=== PATIENT | female | born 1930 | race Caucasian/White ===

== ENCOUNTER 2016-04-16 06:45 | Observation (INO) | payer MEDICARE, OTHER ==
[2016-04-11 10:52] LABS: HEMATOCRIT 39.9 % (36.0-48.0); HEMOGLOBIN 12.9 g/dL (12.0-16.0)
[2016-04-11 11:02] LABS: BUN (BLOOD UREA NITROGEN) 12 MG/DL (6-23); CALCIUM, SERUM 8.9 MG/DL (8.5-10.4); CHLORIDE, SERUM 101 MMOL/L (96-112); CO2 (CARBON DIOXIDE) 30 MMOL/L (24-34); CREATININE 0.72 MG/DL (0.55-1.02); GFR AFRICAN AMERICAN 88 ML/MIN (>=60); GFR NON AFRICAN AMERICAN 76 ML/MIN (>=60); GLUCOSE, SERUM 203 MG/DL (60-99); POTASSIUM, SERUM 3.8 MMOL/L (3.5-5.3); SODIUM, SERUM 140 MMOL/L (135-148)
--- NOTE | ~2016-04-16 | OP ---
Record Of Operation [facility] [address] [place]. [address] NAME: LAWRENCE KELLER : 30 STATUS : ADM Angel PAT#: [id number] AGE: 86 ADM/REG DATE : 04/16/16 MR#: [id number] REPORT SERV DATE: 04/17/16 DICTATED BY: HELLEN KELLEY DATE: 04/17/16 REPORT STATUS : Draft TRANSCRIBED BY: MODL DATE: 04/17/16 DATE OF PROCEDURE: 04/16/2016 PREOPERATIVE DIAGNOSIS: Bilateral lower extremity ischemia, left worse than right. POSTOPERATIVE DIAGNOSIS: Bilateral lower extremity ischemia, left worse than right. PROCEDURE: 1. Ultrasound-guided percutaneous access, right common femoral artery. 2. Abdominal aortogram. 3. Bilateral lower extremity arteriogram. 4. Percutaneous directional atherectomy of the left popliteal artery (TurboHawk SXC). 5. Drug-coated balloon angioplasty of the left popliteal artery (4 mm x 80 mm IN.PACT Admiral balloon). 6. Drug-coated balloon angioplasty left proximal SFA (6 mm x 40 mm IN.PACT Admiral balloon). 7. Percutaneous angioplasty of left anterior tibial artery (3 mm balloon). SURGEON: Hellen Kelley M.D. ANESTHESIA: Local with MAC. ESTIMATED BLOOD LOSS: 10 mL. CONTRAST: 103 mL. IV FLUIDS: 400 mL. SPECIMEN: Plaque. COMPLICATIONS: None. INDICATIONS: Ms. Keller is a pleasant 86-year-old female, with a longstanding peripheral arterial disease, secondary to atherosclerosis. She has developed recurrent ischemic symptoms in both legs, left worse than right. She is brought today for arteriography and percutaneous intervention if needed. DETAILS OF PROCEDURE: After informed consent was obtained, the patient was brought to the endovascular suite, and placed in supine position. After administration of IV sedation, she was prepped and draped in usual sterile fashion. A time-out was performed. I commenced the procedure with ultrasound-guided percutaneous access of the right common femoral artery. This was done after anesthetizing the right groin with local anesthetic. A permanent image of the artery documenting its patency was saved and stored in the patient's chart. I accessed with a micropuncture needle and passed a micropuncture wire and confirmed intra- arterial under fluoroscopy. I then upsized to a 5-Qatari sheath over a Bentson wire. I advanced the Bentson wire and universal flush catheter into the abdominal aorta. The Record Of Operation [facility] [address] [place]. [address] NAME: LAWRENCE KELLER : 30 STATUS : ADM Angel PAT#: [id number] AGE: 86 ADM/REG DATE : 04/16/16 MR#: [id number] REPORT SERV DATE: 04/17/16 DICTATED BY: HELLEN KELLEY DATE: 04/17/16 REPORT STATUS : Draft TRANSCRIBED BY: SRINI DATE: 04/17/16 abdominal aortogram was performed, which showed the infrarenal aorta to be patent with no stenosis or aneurysmal disease. Single renal arteries were patent bilaterally with no stenosis. Common iliacs, internal iliacs, and external iliacs were patent bilaterally with no stenosis. Next, I pulled the flush catheter down to the bifurcation and flexed it over the contralateral iliac with a Glidewire. I advanced the flush catheter over the Glidewire over the bifurcation under fluoro. I then performed left leg arteriogram. This showed the common femoral and deep femoral arteries to be patent with no stenosis. The origin the SFA was patent. Just beyond the origin, there was a focal 80% stenosis. The remainder of the SFA was diffusely diseased, but has no high-grade stenosis. There was a stent in place in the mid SFA which was patent with no stenosis. There was long segment of high-grade stenosis in the above knee popliteal artery. There was short segment occlusion of below- knee popliteal artery extending into the origin of the anterior tibial artery which was also occluded. The distal anterior tibial artery was patent all the way to the foot. It is the only significant runoff vessel. After that, we systemically heparinized. I replaced the Glidewire into the flush catheter. I exchange the 5-Qatari sheath for a 6 x 45 sheath over the bifurcation under fluoro. I used a NaviCross and a Glidewire to navigate through the SFA and popliteal arteries. I then used the V-18 and a NaviCross to engage the anterior tibial artery. I advanced a wire and catheter to the anterior tibial artery stenosis. I then performed balloon angioplasty in the distal popliteal artery and proximal anterior tibial artery with a 3 mm balloon. Repeat contrast injection showed this area to be widely patent now with no residual stenosis and no dissection. There was good flow distally. I then exchanged for 0.014 wire. I then performed percutaneous directional atherectomy in the popliteal artery with the TurboHawk SXC. Multiple passes were made. Significant plaque was extracted. Repeat contrast injection shows substantial improvement in the flow lumen with only mild residual stenosis remaining. Drug coated balloon angioplasty was undertaken with a 4 mm IN.PACT Admiral balloon. Repeat contrast injection showed this area to be widely patent with no stenosis. There was good flow distally with no evidence of distal embolization. We then turned our attention back to the proximal SFA. Pre-dilatation was undertaken in the high-grade SFA stenosis with a 5 mm balloon. We then used IN.PACT Admiral balloon for drug coated balloon angioplasty in the same lesion. Repeat contrast injection shows the area to be widely patent now with no residual stenosis and no dissection. Again runoff to the foot was confirmed with no evidence of distal embolization. There was improved flow to the foot. Wires and catheters were removed. We replaced the Bentson wire and pulled the sheath back over the bifurcation. Right femoral artery arteriogram shows the puncture site in the mid common femoral artery. I also performed right leg arteriogram which showed the common femoral and deep femoral arteries to be patent with no stenosis. There was diffuse irregular disease throughout the SFA and popliteal arteries with no high- grade stenosis. Below the knee, there was stenosis in the tibioperoneal trunk. 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 There was in line flow through the peroneal artery with no evidence of high-grade stenosis. After that, ProGlide closure device was deployed for hemostasis. The patient tolerated the procedure well with no complications. I was present for this entire case as dictated. ALEXIS/SRINI Record Of [address]. [address] NAME: LAWRENCE KELLER : 30 STATUS : ADM Angel PAT#: [id number] AGE: 86 ADM/REG DATE : 04/16/16 MR#: [id number] REPORT SERV DATE: 04/17/16 DICTATED BY: HELLEN KELLEY DATE: 04/17/16 REPORT STATUS : Draft TRANSCRIBED BY: SRINI DATE: 04/17/16 Hellen Kelley M.D. / [id number] CC: Pj Ford M.D.
[~2016-04-16 06:45] MED LIST: AMARYL2 PO; ASAB PO; CENTRUM PO; GLUCOPHXR7 PO; GLUCPH PO; KLOR-CON M2020 MEQ PO; LIPITOR10 PO; MOBIC7.5 PO; NORCO1 TA1 PO; NORV5 PO; PLAVIX PO; SAS500 PO; ZESTORETIC PO; [UNRECOGNIZED DRUG - OTHER] PO
[2016-04-17 05:19] LABS: BUN (BLOOD UREA NITROGEN) 12 MG/DL (6-23); CALCIUM, SERUM 8.8 MG/DL (8.5-10.4); CHLORIDE, SERUM 103 MMOL/L (96-112); CO2 (CARBON DIOXIDE) 29 MMOL/L (24-34); CREATININE 0.69 MG/DL (0.55-1.02); GFR AFRICAN AMERICAN 91 ML/MIN (>=60); GFR NON AFRICAN AMERICAN 79 ML/MIN (>=60); GLUCOSE, SERUM 194 MG/DL (60-99); SODIUM, SERUM 142 MMOL/L (135-148)
[2016-10-15] MEDS ORDERED: ACTOS15 PO (16:04)
[2016-10-15] MEDS ORDERED: NEUR300 PO (16:04)
[2016-10-15] MEDS ORDERED: CYMBALTA30 PO (16:05)
[2016-10-15] MEDS ORDERED: NORCO1 TA2 PO (16:06)
[2016-10-15] MEDS ORDERED: SENTAB PO (16:07)
[2016-10-15] MEDS ORDERED: T PO (16:07)
== END 2016-04-17 15:00 | disposition home or self-care (01) ==
LOC: SDC 06:45 → SSU1 11:34
PROVIDERS: Surgery
PROC: 04CN3ZZ Extirpation of Matter from Left Popliteal Artery, Percutaneous Approach (ICD-10-PCS; principal; 2016-04-16 08:15)
PROC: 047N3Z1 Dilation of Left Popliteal Artery using Drug-Coated Balloon, Percutaneous Approach (ICD-10-PCS; 2016-04-16 08:15)
PROC: 047L3Z1 Dilation of Left Femoral Artery using Drug-Coated Balloon, Percutaneous Approach (ICD-10-PCS; 2016-04-16 08:15)
PROC: 047Q3ZZ Dilation of Left Anterior Tibial Artery, Percutaneous Approach (ICD-10-PCS; 2016-04-16 08:15)
DX: I70.292 Other atherosclerosis of native arteries of extremities, left leg (principal); I10 Essential (primary) hypertension; E11.9 Type 2 diabetes mellitus without complications; Z86.711 Personal history of pulmonary embolism; F32.9 Major depressive disorder, single episode, unspecified; K50.90 Crohn's disease, unspecified, without complications; Z88.5 Allergy status to narcotic agent; Z79.899 Other long term (current) drug therapy; Z79.82 Long term (current) use of aspirin; Z79.1 Long term (current) use of non-steroidal anti-inflammatories (NSAID)
CPT/HCPCS: 37225; 37228; 75625; 75716; 76937; 80048; 82962; 85014; 85018; 88304; 88311; 93005; 96372; A9270-GY; C1724; C1725; C1760; C1769; C1887; C1894; C2623; G0378; J2370; J3010; Q9966